=== PATIENT | female | born 1975 | race Caucasian/White ===

== ENCOUNTER 2020-10-26 07:48 | Emergency (ER) | payer MEDICARE, OTHER, SELFPAY ==
[2020-10-26 07:55] VITALS: BP 142/66; PULSE 88; RESP 15; TEMP 36.2; O2SAT 98; BMI 34.3
[2020-10-26] MEDS: AMOXICILLIN/CLAV 875/125 MG 1 TAB PO (08:07)
[2020-10-26] MEDS: predniSONE 20 MG TABLET 40 MG PO (08:07)
--- NOTE | 2020-10-26 08:07 | ED.ALLEREA ---
HPI - Allergic Reaction General Chief complaint: Allergic Reaction Stated complaint: SWELLING OF FACE Time Seen by Provider: 10/26/20 07:53 Source: patient Mode of arrival: Ambulatory Limitations: no limitations History of Present Illness HPI narrative: 45-year-old female daily smoker with no chronic medical problems presents with her significant other and a chief complaint of mildly painful left-sided facial swelling since yesterday. She denies any injury. She has had no trouble breathing or swallowing. She denies any fever or chills. She does have a history of dental abscesses but denies any fever, chills or foul tasting drainage. She denies any rash, wheezing or exposure to new medications, pets, clothing or other possible allergic triggers. MD complaint: facial swelling Onset (ago): hour(s) Exposure: unknown Symptoms: facial swelling Severity: mild Treatment prior to arrival: none Previous Allergic Reaction History: none Related Data Previous Rx's Medication Instructions Recorded amoxicillin-pot clavulanate 1 tab PO BID #20 tab 10/26/20 [Augmentin] prednisone See Rx Instructions .ROUTE 10/26/20 .COMPLEX #30 tab Allergies Allergy/AdvReac Type Severity Reaction Status Date / Time No Known Drug Allergies Allergy Verified 10/26/20 08:01 Review of Systems Constitutional Constitutional: Denies chills, Denies fatigue, Denies fever(s), Denies frequent falls, Denies lethargy and Denies weakness Eyes Eyes: Denies change in vision, Denies eye discharge, Denies irritation and Denies loss of vision ENT Ears, Nose, Mouth, and Throat: Denies change in voice, Denies dizziness, Reports facial pain, Denies neck pain, Denies sore throat and Denies throat swelling Cardiovascular Cardiovascular: Denies chest pain, Denies irregular heart rhythm, Denies lightheadedness, Denies palpitations, Denies dyspnea, Denies dyspnea on exertion and Denies orthopnea Respiratory Respiratory: Denies cough, Denies dyspnea, Denies dyspnea on exertion and Denies wheezing Gastrointestinal Gastrointestinal: Denies abdominal pain, Denies change in bowel habits, Denies diarrhea, Denies nausea and Denies vomiting Musculoskeletal Musculoskeletal: Denies neck pain and Denies numbness Integumentary/Breasts Skin/Breast: Denies pruritus, Denies erythema, Denies rash and Denies wounds Neurologic Neurologic: Denies behavioral changes, Denies confusion, Denies dizziness, Denies frequent falls, Denies loss of vision, Denies numbness and Denies weakness Psychiatric Psychiatric: Denies anxiety, Denies behavioral changes, Denies confusion, Denies depression, Denies homicidal ideation and Denies suicidal ideation Endocrine Endocrine: Denies fatigue, Denies flushing and Denies palpitations Hematologic/Lymphatic Hematologic/Lymphatic: Denies easy bruising Allergic/Immunologic Allergic/Immunologic: Denies urticaria, Denies throat swelling and Denies wheezing Patient History Social History Smoking Status: Current every day smoker Smoking Status: Current every day smoker tobacco type: cigarettes alcohol intake frequency: 0-2 drinks per day Substance Use Type: does not use Exam Narrative Exam Narrative: GENERAL 45 year old patient appears stated age. Well-nourished, well-developed patient, in mild distress. HEAD: Atraumatic. Normocephalic. Mild left maxillary swelling without erythema, fluctuation or induration EYES: Pupils equal round and reactive. Extraocular motions intact. No scleral icterus. No injection or drainage. ENT: Poor dentition throughout, left upper molars probable source, no obvious drainable intraoral abscess. Nose without bleeding, purulent drainage. Throat without erythema, tonsillar hypertrophy or exudate. Airway patent. NECK: Trachea midline. Non tender CARDIOVASCULAR: Regular rate and rhythm without murmurs, gallops, or rubs. RESPIRATORY: Clear to auscultation. Breath sounds equal bilaterally. No wheezes, rales, or rhonchi. GASTROINTESTINAL: Abdomen soft, non-tender, nondistended. EXTREMITIES: No edema or joint tenderness. BACK: Nontender without deformity or crepitance. No flank tenderness. NEURO: AOx3. SKIN: No rash or erythema of visible areas Initial Vital Signs Initial Vital Signs: Vital Signs Temperature 97.1 F L 10/26/20 07:55 Pulse Rate 88 10/26/20 07:55 Respiratory Rate 15 10/26/20 07:55 Blood Pressure 142/66 H 10/26/20 07:55 Pulse Oximetry 98 10/26/20 07:55 Course Orders Ordered: Discontinued Medications Amoxicillin/Clavulanate Potassium (Amoxicillin/Clav 875/125 Mg) 1 tab PO NOW ONE Stop: 10/26/20 08:05 Prednisone (Prednisone 20 Mg Tablet) 40 mg PO NOW ONE Stop: 10/26/20 08:05 Vital Signs Vital signs: Vital Signs - 8 hr 10/26/20 07:55 Temperature 97.1 F L Pulse Rate 88 Respiratory Rate 15 Blood Pressure 142/66 H Pulse Oximetry 98 MDM - Allergic Reaction MDM Narrative Medical decision making narrative: Multiple etiologies for patient's symptoms considered including: [Dental abscess thought most likely given unilateral presentation, lack of other symptoms, mild pain and poor dentition. Other symptoms include atypical keratitis versus sialoadenitis versus focal allergic reaction.] Patient's symptoms improved over duration of stay with above-stated therapies. Findings and discharge diagnosis discussed with patient/family followed by verbalization of understanding Return precautions discussed with patient/family whom verbalize understanding. Discharge Plan Departure Patient Disposition: Home Clinical Impression: Abscess, dental Instructions: Tooth Abscess Activity Restrictions/Additional Instructions: *You have been diagnosed with [mild facial swelling, likely due to early dental abscess] *What to do: *Take medications as directed *Follow up with your primary care provider in 2-3 days, call for an appointment. Let them know you were seen in the Emergency Department and that we ask that you be seen in follow up *Return to ER if you should have any new, worsening or concerning symptoms, such as [increased swelling, difficulty breathing, trouble swallowing or other bothersome symptoms] Prescriptions: New prednisone 10 mg tablet See Rx Instructions .ROUTE .COMPLEX Qty: 30 RF: 0 amoxicillin-pot clavulanate [Augmentin] 875-125 mg tablet 1 tab PO BID Qty: 20 RF: 0
== END 2020-10-26 08:12 | disposition home or self-care (01) ==
PROVIDERS: Emergency Provider Emergency Medicine
DX: K04.7 Periapical abscess without sinus (principal)
CPT/HCPCS: 99281; 99283

== ENCOUNTER 2024-02-07 21:47 | Emergency (ER) | payer MEDICARE, MEDICAID, SELFPAY ==
[2024-02-07] VITALS (8 sets, daily range): BP systolic 127–178; BP diastolic 71–101; PULSE 67–97; RESP 17–22; TEMP 36.4; O2SAT 100; BMI 29.9
--- NOTE | 2024-02-07 22:07 | ED.BACK ---
HPI - Back Pain/Injury General Chief Complaint: Back Pain/Injury Stated Complaint: kidney pain Time Seen by Provider: 02/07/24 21:53 Source: patient History of Present Illness HPI Narrative: 48-year-old female with a reported history of rheumatoid arthritis presents for left-sided lumbar back pain. Patient states that she was concerned that she has a problem with her kidneys in his here for evaluation. Took ibuprofen prior to arrival with minimal relief of pain. Denies changes in bowel or bladder habits. Denies nausea or vomiting. Of note, when I initially arrived to evaluate the patient she was resting on her left-hand side texting on her phone. Shortly after evaluating the patient she began to scream and cry, yelling profanities at nursing staff and demanding pain medications. Related Data Previous Rx's Medication Instructions Recorded amoxicillin 875 mg-potassium 1 tab PO BID #20 tabs 10/26/20 clavulanate 125 mg tablet (Augmentin) prednisone 10 mg tablet See Rx Instructions .Route 10/26/20 .COMPLEX #30 tabs methocarbamol 500 mg tablet 500 mg PO TID #30 tabs 02/07/24 methylprednisolone 4 mg tablets in See Rx Instructions PO .COMPLEX 02/07/24 a dose pack (Medrol (Yang)) #21 ea Allergies Allergy/AdvReac Type Severity Reaction Status Date / Time No Known Drug Allergies Allergy Verified 10/26/20 08:01 Review of Systems Review of Systems Narrative: See HPI Patient History Social History Smoking Status: Current every day smoker Smoking Status: Current every day smoker tobacco type: cigarettes alcohol intake frequency: 0-2 drinks per day Substance Use Type: marijuana and methamphetamine Exam Initial Vital Signs Initial Vital Signs: Vital Signs Pulse Rate 94 H 02/07/24 21:55 Blood Pressure 178/101 H 02/07/24 21:55 Pulse Oximetry 100 02/07/24 21:55 Oxygen Delivery Method Room Air 02/07/24 21:55 Const: Awake, alert, appears older than stated age, chronically unwell Cardiac: regular rate, regular rhythm RESP: unlabored, clear bilaterally, no wheezing MSK: No midline tenderness, generalized left-sided paraspinal and CVA tenderness to palpation Skin: Warm, Dry, intact, no rashes Neuro: AO x3, CN II-XII grossly intact, moves all extremities Course Orders Ordered: ED Orders 02/07/24 22:00 UA Complete [Urinalysis and Microscopic] Stat Urine Drug Screen, Rapid Stat 02/07/24 22:06 CT abdomen pelvis wo con Stat 02/07/24 22:17 CBC Auto Diff [Complete Blood Count AUTO DIFF] Stat CMP [Comprehensive Metabolic Panel] Stat Discontinued Medications Droperidol (Droperidol 5 Mg/2 Ml Vial) 2.5 mg IV NOW ONE Stop: 02/07/24 23:12 Last Admin: 02/07/24 23:18 Dose: 2.5 mg Documented By: TINY Acetaminophen (Ofirmev) 1,000 mg in 100 mls @ 400 mls/hr IV NOW ONE Stop: 02/07/24 22:20 Last Infusion: 02/07/24 23:17 Dose: Infused Documented By: Infusion: 02/07/24 22:45 Dose: 400 mls/hr Documented By: Infusion: 02/07/24 22:29 Dose: 0 mls/hr Documented By: Admin: 02/07/24 22:29 Dose: 400 mls/hr Documented By: ROSSY Sodium Chloride (Normal Saline 0.9%) 1,000 mls @ 1,000 mls/hr IV BOLUS ONE Stop: 02/07/24 23:05 Last Infusion: 02/07/24 23:50 Dose: Infused Documented By: Infusion: 02/07/24 22:45 Dose: 1,000 mls/hr Documented By: Infusion: 02/07/24 22:29 Dose: 0 mls/hr Documented By: Admin: 02/07/24 22:28 Dose: 1,000 mls/hr Documented By: ROSSY Ketorolac Tromethamine (Ketorolac 30 Mg/Ml Vial) 15 mg IV NOW ONE Stop: 02/07/24 22:07 Last Admin: 02/07/24 22:21 Dose: 15 mg Documented By: ROSSY Vital Signs Vital signs: Vital Signs - 8 hr 02/07/24 21:55 02/07/24 21:55 02/07/24 21:58 Temperature 97.5 F L Pulse Rate 94 H 97 H Respiratory Rate 22 Blood Pressure 178/101 H 178/101 H Pulse Oximetry 100 100 Oxygen Delivery Method Room Air Room Air 02/07/24 22:00 02/07/24 22:01 02/07/24 22:01 Temperature Pulse Rate 84 80 Respiratory Rate Blood Pressure 142/88 H Pulse Oximetry 100 100 Oxygen Delivery Method Room Air 02/07/24 22:38 02/07/24 23:00 02/07/24 23:30 Temperature Pulse Rate 81 79 67 Respiratory Rate Blood Pressure Pulse Oximetry 100 100 100 Oxygen Delivery Method Room Air 02/07/24 23:55 02/07/24 23:55 02/08/24 00:00 Temperature Pulse Rate 67 66 Respiratory Rate 17 18 Blood Pressure 127/71 127/71 Pulse Oximetry 100 100 Oxygen Delivery Method Room Air Room Air MDM - Back Pain/Injury Differential Diagnosis Differential diagnosis: Likely lumbar radiculopathy, sciatica and strain of lumbar region Lab Data 02/07/24 22:17 02/07/24 22:17 Labs: Lab Results 02/07/24 02/07/24 02/07/24 Range/Units 22:00 22:00 22:17 WBC 4.8 (4.5-11.0) X10^3/uL RBC 4.34 (4.0-5.2) X10^6/uL Hgb 7.9 L (12.0-16.0) g/dL Hct 25.9 L (36-46) % MCV 59.7 L (80-100) fL MCH 18.1 L (26-34) PG MCHC 30.4 (30-36) % RDW 19.1 H (11.6-14.8) % Plt Count 356 (150-400) X10^3/uL Neut % (Auto) 35.9 L (50-75) % Lymph % (Auto) 51.2 H (25-40) % [place] % (Auto) 8.5 (3-14) % Eos % (Auto) 3.9 (2-4) % Baso % (Auto) 0.5 (0-2) % Neut # (Auto) 1700 (2970-5997) /uL Lymph # (Auto) 2400 (2237-5587) /uL [place] # (Auto) 400 (0-900) /uL Eos # (Auto) 200 (0-450) /uL Baso # (Auto) 0 (0-100) /uL RBC Morphology See below Hypochromasia 2+ H Anisocytosis 1+ H Microcytosis 3+ H Ovalocytes 1+ H Sodium 137 (137-145) mmol/L Potassium 4.1 (3.4-5.1) mmol/L Chloride 107 (98-107) mmol/L Carbon Dioxide 27 (22-32) mmol/L BUN 14 (7-17) mg/dL Creatinine 0.72 (0.52-1.04) mg/dL Estimated GFR > 60 (>60) mL/min BUN/Creatinine Ratio 19.4 (6-22) Glucose 91 (70-100) mg/dL Calcium 9.0 (8.4-10.2) mg/dL Total Bilirubin 0.3 (0.2-1.3) mg/dL AST 13 L (14-36) IU/L ALT 9 (<35) IU/L Alkaline Phosphatase 66 (38-126) U/L Total Protein 7.2 (6.3-8.2) g/dL Albumin 3.9 (3.5-5.0) g/dL Globulin 3.3 (1.7-4.1) g/dL Albumin/Globulin Ratio 1.2 (1.0-2.8) Urine Color Yellow Urine Appearance Clear Urine pH 6.0 Normal (4.5-8.0) Ur Specific [place] <=1.005 (1.000-1.035) Urine Protein Negative (Negative) Urine Glucose (UA) Negative (Negative) g/dL Urine Ketones Negative (NEGATIVE) Urine Occult Blood Negative (Negative) Urine Nitrate Negative (Negative) Urine Bilirubin Negative (NEGATIVE) Urine Urobilinogen 0.2 (0.2) E.U./dL Ur Leukocyte Esterase Negative (NEGATIVE) Urine RBC None seen (0-5/HPF) Urine WBC None seen (0-5/HPF) Ur Squamous Epith Cells 1-5 /hpf (0-5/HPF) Urine Bacteria Few (2-10) H (None) Ur Culture Indicated? Cult not indicated Vol Urine Centrifuged 10ml (spun) U Opiates 300ng/mL cut Negative (Negative) Ur Oxycodone Screen Negative (Negative) Urine Methadone Screen Negative (Negative) Ur Barbiturates Screen Negative (Negative) U Tricyclic Antidepress Negative (Negative) Ur Phencyclidine Scrn Negative (Negative) Ur Amphetamines Screen Positive H (Negative) U Methamphetamines Scrn Positive H (Negative) Ur MDMA Scrn (Ecstasy) Negative (Negative) U Benzodiazepines Scrn Negative (Negative) Urine Cocaine Screen Negative (Negative) U Marijuana (THC) Screen Negative (Negative) Urine Specific [place] Normal (Normal) Ur Creatinine Normal (Normal) Urine Dip Bedside Urine Glucose Negative Bedside Urine Bilirubin - Negative Bedside Urine Ketone - Negative Urine Specific [place] 1.015 Bedside Urine Occult Blood - Negative Bedside Urine pH 6.0 Bedside Urine Protein - Negative Bedside Urine Urobilinogen - Negative Bedside Urine Nitrite - Negative Bedside Urine Leukocytes - Negative Esterase Imaging Data CT scan - abdomen/pelvis: Radiologist's Impression: PROCEDURE: CT ABDOMEN PELVIS WO CON INDICATIONS: L FLANK PAIN TECHNIQUE: Axial sections were acquired from the lung bases to the pubic symphysis. Coronal and sagittal reformats were performed. For radiation dose reduction, the following was used: automated exposure control, adjustment of mA and/or kV according to patient size. COMPARISON: None. FINDINGS: Image quality: Diagnostic. Lower Chest: No significant findings. URINARY: Right Kidney: No stones or hydronephrosis. Right Ureter: No hydroureter. Left Kidney: 1.5 mm left mid kidney nonobstructive calculus, no other stones or hydronephrosis. Left Ureter: No hydroureter. Bladder: Normal wall thickness. No stones. ABDOMEN: Liver: No contour-deforming solid mass. Within the right hepatic lobe there are 2 separate vague hypodensities which may simply reflect presence of him angiomas. One is located within the subcapsular right hepatic lobe laterally on series 2, image 19 measuring 2 cm and the 2nd is slightly lower within the right posterior hepatic segment measuring 1.4 cm seen on series 2, image 24. Gallbladder: Single 2 mm gallstone, no biliary distension. Biliary ducts: No biliary dilation. Pancreas: No ductal dilation. Spleen: Size is within normal limits. Adrenal Glands: No adrenal nodules. Stomach and Bowel: Normal colonic caliber, without significant wall thickening. Peritoneum: No abnormal intraperitoneal fluid. No free air. Ventral Wall: No hernia. Abdominal Nodes: No enlarged retroperitoneal or mesenteric lymph nodes. Vessels: Aorta and inferior vena cava are normal in size. PELVIS: Pelvic Organs: Unremarkable. Pelvic Nodes: Unremarkable. Miscellaneous: No inguinal hernias are seen. Normal appendix found. Bones: Unremarkable. IMPRESSION: No obstructing stones or hydronephrosis. Small nonobstructive left mid kidney collecting system calculus incidentally noted. Small calcified single gallstone within the gallbladder lumen, the gallbladder does not appear inflamed. Nonspecific small hypodensities within the right hepatic lobe as discussed. Elective follow-up ultrasound could be utilized to assist in determining whether these simply represent hemangiomas. Dictated by: Marshall Alfaro M.D. on 02/07/2024 at 23:05 Approved by: Marshall Alfaro M.D. on 02/07/2024 at 23:11 MDM Narrative Medical decision making narrative: Left-sided flank/lumbar pain. Patient concerned that she may have a kidney stone, but she denies history of kidney stones in the past. Tender to palpation all over the left side of her back. On my initial evaluation patient resting comfortably in bed on her phone, however shortly afterwards patient began sobbing,, screaming for pain medications and cursing at nursing staff. Tylenol, Toradol, Decadron, droperidol, IV fluids ordered. Pain controlled with medications. Laboratory work is reviewed. Patient has anemia with hemoglobin 7.9, no previous for comparison. This could be chronic due to history of rheumatoid arthritis. WBC count 4.8, platelets 356, sodium 137, potassium 4.1, creatinine 0.72, normal liver enzymes. CT of the abdomen and pelvis shows no renal stone or other acute process. Incidental note of small hypodensities in the right hepatic lobe, however no priors for comparison. Patient informed of lab and imaging findings. Recommended follow up with her primary care physician and [employer] if she continues to experience symptoms. Muscle relaxers and steroids sent to pharmacy of choice. Discharge Plan Departure Patient Disposition: Home Clinical Impression: Lumbar back pain, Abnormal CT scan, liver Instructions: DI for Low Back Pain Activity Restrictions/Additional Instructions: Your laboratory work and CT imaging today did not show any evidence of kidney stones or infection. Based on where your pain is located this is likely low back strain. An incidental note of 2 small hypodensities in your liver. I recommend following up with your primary care doctor about these findings as you may need additional imaging such as an ultrasound. Take Tylenol and ibuprofen at home for pain. You may also use the prescribed steroids and muscle relaxers Prescriptions: New methocarbamol 500 mg tablet 500 mg PO TID Qty: 30 0RF methylprednisolone [Medrol (Yang)] 4 mg tablets,dose pack See Rx Instructions .ROUTE .COMPLEX Qty: 21 0RF Rx Instructions: for 6 days No Action prednisone 10 mg tablet See Rx Instructions .ROUTE .COMPLEX Qty: 30 0RF Rx Instructions: Day 1,2,3: 40mg PO Daily Day 4,5,6: 30mg PO Daily Day 7,8,9: 20mg PO Daily Day 10,11,12: 10mg PO Daily #30 amoxicillin-pot clavulanate [Augmentin] 875-125 mg tablet 1 tab PO BID Qty: 20 0RF Stand Alone Forms: Patient Portal/API
[2024-02-07] MEDS: KETOROLAC 30 MG/ML VIAL 15 MG IV (22:21)
[2024-02-07] MEDS: SODIUM CHLORIDE 0.9% 1,000 ML 1000 ML IV (22:28)
[2024-02-07 22:29] LABS: Add Manual Diff / Slide Review NO; Basophils Absolute Auto 0 /uL (0-100); Basophils Percent Auto 0.5 % (0-2); Eosinophils Absolute Auto 200 /uL (0-450); Eosinophils Percent Auto 3.9 % (2-4); Hematocrit 25.9 % (36-46); Hemoglobin 7.9 g/dL (12.0-16.0); Lymphocytes Absolute Auto 2400 /uL (1100-4500); Lymphocytes Percent Auto 51.2 % (25-40); Mean Corpuscular HGB Conc 30.4 % (30-36); Mean Corpuscular Hemoglobin 18.1 PG (26-34); Mean Corpuscular Volume 59.7 fL (80-100); Monocytes Absolute Auto 400 /uL (0-900); Monocytes Percent Auto 8.5 % (3-14); Neutrophils Absolute Auto 1700 /uL (1500-7000); Neutrophils Percent Auto 35.9 % (50-75); Platelet Count 356 X10^3/uL (150-400); Red Blood Cell Count 4.34 X10^6/uL (4.0-5.2); Red Cell Distribution Width 19.1 % (11.6-14.8); White Blood Cell Count 4.8 X10^3/uL (4.5-11.0)
[2024-02-07] MEDS: ACETAMINOPHEN IV 1,000 MG/100 ML VIAL 400 MG IV (22:29)
[2024-02-07 22:38] LABS: Alanine Aminotransferase 9 IU/L (<35); Albumin 3.9 g/dL (3.5-5.0); Albumin Globulin Ratio 1.2 (1.0-2.8); Alkaline Phosphatase 66 U/L (38-126); Aspartate Aminotransferase 13 IU/L (14-36); BUN Creatinine Ratio 19.4 (6-22); Bilirubin Total 0.3 mg/dL (0.2-1.3); Blood Urea Nitrogen 14 mg/dL (7-17); Carbon Dioxide 27 mmol/L (22-32); Chloride 107 mmol/L (98-107); Estimated Glomerular Filt Rate > 60 mL/min (>60); Globulin 3.3 g/dL (1.7-4.1); Glucose 91 mg/dL (70-100); HEMOLYSIS < 15 (0-50); Potassium 4.1 mmol/L (3.4-5.1); Sodium 137 mmol/L (137-145); Total Protein 7.2 g/dL (6.3-8.2)
[2024-02-07 22:55] LABS: Anisocytosis 1+; Hypochromasia 2+; Microcytosis 3+; Ovalocytes 1+
[2024-02-07 23:00] LABS: Appearance Urine UA CLEAR; Bilirubin Urine UA NEGATIVE (NEGATIVE); Color Urine UA YELLOW; Glucose Urine UA NEGATIVE (Negative); Ketones Urine UA NEGATIVE (NEGATIVE); Leukocyte Esterase Urine UA NEGATIVE (NEGATIVE); Nitrite Urine UA NEGATIVE (Negative); Occult Blood Urine UA NEGATIVE (Negative); Protein Urine UA NEGATIVE (Negative); Specific Gravity Urine UA <=1.005 (1.000-1.035); Urobilinogen Urine UA 0.2 E.U./dL (0.2)
[2024-02-07 23:05] LABS: Ur Creatinine Normal (Normal); Ur Specific Gravity Normal (Normal); Urine THC Negative (Negative); Urine pH Normal (Normal)
[2024-02-07 23:06] LABS: Urine Amphetamines Positive (Negative); Urine Barbiturates Negative (Negative); Urine Benzodiazepines Negative (Negative); Urine Cocaine Negative (Negative); Urine MDMA Negative (Negative); Urine Methadone Negative (Negative); Urine Methamphetamines Positive (Negative); Urine Opiates Negative (Negative); Urine Oxycodone Negative (Negative); Urine Phencyclidine Negative (Negative); Urine Tricyclic Antidepressant Negative (Negative)
[2024-02-07 23:11] LABS: Bacteria Urine Few (2-10); Culture Indicated Urine Cult Not Indicated; RBC Urine None Seen (0-5/HPF); Squamous Epithelial Cell Urine 1-5 /HPF (0-5/HPF); Urine Volume 10mL (spun); WBC Urine None Seen (0-5/HPF)
[2024-02-07] MEDS: DROPERIDOL 5 MG/2 ML VIAL 2.5 MG IV (23:18)
[2024-02-08] VITALS: BP 127/71; PULSE 66; RESP 18; O2SAT 100
== END 2024-02-08 00:02 | disposition home or self-care (01) ==
PROVIDERS: Emergency Provider Emergency Medicine
DX: M54.50 Low back pain, unspecified (principal); R93.2 Abnormal findings on diagnostic imaging of liver and biliary tract
CPT/HCPCS: 36415; 74176; 80053; 80305; 81001; 81003; 85025; 96365; 96375; 99284; J0136; J1790; J1885

== ENCOUNTER 2024-06-10 11:27 | Emergency (ER) | payer MEDICARE, MEDICAID, SELFPAY ==
--- NOTE | 2024-06-10 11:41 | ED_ITS ---
HPI - Extremity Injury (Lower) <Milady Quiles PA-C - Last Filed: 06/10/24 12:43> General Chief Complaint: Extremity Problem,Nontraumatic Stated Complaint: L Knee Pain Time Seen by Provider: 06/10/24 11:40 History of Present Illness HPI Narrative: Patient is a very pleasant 49-year-old female presents to the emergency room department today with left knee pain. Patient has ongoing chronic pain, she has had extensive surgical intervention due to multiple orthopedic injuries. She has ongoing neuropathy in the legs. Currently is in between primary care doctors. Currently has a extruder operator helper that she is in close touch with who works with her rheumatologic issues at [facility]. Currently to your medications as prescribed. She now presents with an exacerbation of kind of left lower extremity pins and needles, neuropathy pain, the pain has increased over the last several days. No recent injury, trauma or fall. She can not correlate when the pain intensified with any type of activity that she was doing. We looked for MyChart no recent x-rays. She denies any exacerbation of her neuropathy symptoms she is increasing pain. Took ibuprofen around 7:00 a.m. this morning no other medications. No recent prednisone. Currently not doing any actively physical therapy. She has been disabled since her 30s due to a major back injury and multiple surgical interventions in her lower spine. Currently does not have any back pain. She has no loss of bowel or bladder. She has no signs of cauda equina. Movement of the lower extremity exacerbates the pain. She states the pain is mostly on the anterior aspect of the leg and down the medial and lateral sides and across into the patellar area. Rest seems to improve the pain. The [id number] nonsteroidals do not seem to be helping discomfort and pain. Related Data Previous Rx's Medication Instructions Recorded amoxicillin 875 mg-potassium 1 tab PO BID #20 tabs 10/26/20 clavulanate 125 mg tablet (Augmentin) prednisone 10 mg tablet See Rx Instructions .Route 10/26/20 .COMPLEX #30 tabs methocarbamol 500 mg tablet 500 mg PO TID #30 tabs 02/07/24 methylprednisolone 4 mg tablets in See Rx Instructions PO .COMPLEX 02/07/24 a dose pack (Medrol (Yang)) #21 ea hydrocodone 5 mg-acetaminophen 325 1 tab PO BID PRN pain #12 tabs 06/10/24 mg tablet Allergies Allergy/AdvReac Type Severity Reaction Status Date / Time No Known Drug Allergies Allergy Verified 10/26/20 08:01 Review of Systems <Milady Quiles PA-C - Last Filed: 06/10/24 12:43> Review of Systems Narrative: Negative except as above Musculoskeletal Comments: pain left knee ongoing issues with the left knee, known exacerbation her pain. Patient History <Milady Quiles PA-C - Last Filed: 06/10/24 12:43> Social History Smoking Status: Current every day smoker Smoking Status: Current every day smoker tobacco type: cigarettes alcohol intake frequency: 0-2 drinks per day Substance Use Type: marijuana and methamphetamine Exam <Milady Quiles PA-C - Last Filed: 06/10/24 12:43> Initial Vital Signs Initial Vital Signs: Vital Signs Temperature 98.2 F 06/10/24 11:50 Pulse Rate 93 H 06/10/24 11:50 Respiratory Rate 20 06/10/24 11:50 Blood Pressure 131/87 06/10/24 11:50 Pulse Oximetry 100 06/10/24 11:50 Oxygen Delivery Method Room Air 06/10/24 11:50 Initial set of vital signs blood pressure 131/87, heart rate 93, respiratory rate 20, temp is 98.2?, oxygen saturation 100% on room air. Const General: cooperative, comfortable, well developed, No acute distress, No in distress and No anxious [facility] Head: normal to inspection and normocephalic Eyes General: Yes appearance normal, both eyes and all related structures Pupils: other (Left pupil equal and reactive, she has some haziness over the right cornea.) EOM: EOM intact bilaterally Skin Other: Warm pink and dry Neuro General: patient alert, patient awake, patient oriented x3 and oriented Cranial Nerves: CN's II-XI intact bilaterally Cognition: normal cognition Speech: speech normal Gait: antalgic and other (Favoring the left knee) Extrem Other: Upper extremities range of motion, strength, pulses, cap refill is preserved in the upper extremities. Right lower extremity normal exam. Left lower extremity no soft tissue swelling. Skin is normal. Cap refill is preserved. Pulses are present. Patient has medial and lateral ITB band discomfort and pain with palpation. Pain along the patella. No popliteal pain. Range of motion passive and active causes her some minimal distress. Strength is intact. No laxity is noted on exam. No obvious deformity. No soft tissue swelling. No erythema. No deformities noted. Psych Appearance: grossly normal Mental Status: mental status grossly normal Speech and Movement: speech and movement normal Mood: congruent mood Affect: normal affect Attitude: cooperative Thought Process: normal Thought Content: normal Judgment: judgment good <DO Sveta Garduno Last Filed: 06/17/24 16:31> Initial Vital Signs Initial Vital Signs: Vital Signs Temperature 98.2 F 06/10/24 11:50 Pulse Rate 93 H 06/10/24 11:50 Respiratory Rate 20 06/10/24 11:50 Blood Pressure 131/87 06/10/24 11:50 Pulse Oximetry 100 06/10/24 11:50 Oxygen Delivery Method Room Air 06/10/24 11:50 Scores <Milady Quiles PA-C - Last Filed: 06/10/24 12:43> GCS Citation: 15 Course <Milady Quiles PA-C - Last Filed: 06/10/24 12:43> Orders Ordered: Discontinued Medications Hydrocodone Bitart/Acetaminophen (Hydrocodone/Acet 5/325 Tablet) 1 tab PO NOW ONE Stop: 06/10/24 11:54 Last Admin: 06/10/24 12:06 Dose: 1 tab Documented By: PLACIDO Hydrockemar 01/13/2025 X-ray of the left knee <DO Sveta Garduno Last Filed: 06/17/24 16:31> Orders Ordered: Discontinued Medications Hydrocodone Bitart/Acetaminophen (Hydrocodone/Acet 5/325 Tablet) 1 tab PO NOW ONE Stop: 06/10/24 11:54 Last Admin: 06/10/24 12:06 Dose: 1 tab Documented By: PLACIDO MDM - Extremity Injury (Lower) <Milady Quiles PA-C - Last Filed: 06/10/24 12:43> Imaging Data Extremity x-ray #1: Radiologist's Impression: [address] [address] XRay Report Signed Patient: Krystal Welch MR#: [id number] : 1975 Acct:[id number] Age/Sex: 49 / F Date of Service: 06/10/24 Loc: ED Accession Number: [id number] Procedure: XR knee LT 3V Ordering Provider: Milady Quiles PA-C PROCEDURE: XR KNEE LT 3V INDICATIONS: knee pain TECHNIQUE: 3 views of the knee were acquired. COMPARISON: None. FINDINGS: Bones: No fractures or dislocations. No suspicious bony lesions. Soft tissues: There is a small to moderate joint effusion. No suspicious soft tissue calcifications. IMPRESSION: Small to moderate joint effusion. No significant bony abnormality is seen. If it would be helpful for clinical management decision making, please consider a dedicated, scheduled knee MRI for further evaluation (assuming that there is no contraindication). Dictated by: Porfirio Bolden M.D. on 06/10/2024 at 11:25 Approved by: Porfirio Bolden M.D. on 06/10/2024 at 11:25 MDM Narrative Medical decision making narrative: Patient is a very pleasant 49-year-old female that presents to the emergency department with an exacerbation ongoing chronic pain. Patient has a longstanding history of multiple back surgeries, lower extremity neuropathy, lower extremity pain. 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 Patient has been dealing with the pain for several days exacerbation of the pain. Difficulty sleeping, currently in between primary doctors. [id number] nonsteroidals not controlling her discomfort and pain. No red flag symptoms. Exam is negative for any acute signs of ligament damage. Hydrocodone 1 tablet p.o. Knee x-ray no major finding suggest knee MRi Pt needs pcp tyler wrap given to the patient upon DC Discussed with the patient that though she was rheumatologists in [facility] she really needs to establish care with a primary care doctor she is 49, she needs an FOBT, she needs a mammogram, he would Pap smear, she needs just basic lab work not just rheumatologic tests. She needs to be evaluated for diabetes thyroid problem those type of things which a extruder operator helper would not be engaged with. Patient understands if states very difficult to find somebody and [place] which I completely understand. I have encouraged her to look maybe perhaps here in the surrounding area around [facility]. Currently at this time she has been wheeled to the x-ray department for an x-ray of the knee since we were [facility] Differential diagnosis; exacerbation chronic pain, knee strain, knee sprain, internal derangement. Discharge Plan Departure Patient Disposition: Home Clinical Impression: Left knee sprain Qualifiers: Encounter type: initial encounter Involved ligament of knee: unspecified ligament Qualified Code(s): S83.92XA - Sprain of unspecified site of left knee, initial encounter Chronic pain Qualifiers: Chronic pain type: other chronic pain Qualified Code(s): G89.29 - Other chronic pain Activity Restrictions/Additional Instructions: X-ray does not show any major acute findings. You have a joint effusion which is fluid this is associated with inflammation. Sounds like you have prednisone home but does not sound like it is helping his your currently taking it for a flare of her rheumatoid arthritis. Please follow up with her primary care doctor.. We have sent you home with an Tyler wrap please apply the Tyler wrap the knee for support and comfort. Elevate the leg. Ice and heat on and off the leg. Please establish care with a primary care doctor. The radiologist is suggesting an MRI of the left knee. You will need a referral/prescription for an MRI, and then you will need somebody to follow up on the results. You can ask your extruder operator helper to order this or you can attempt to find a primary care doctor I would suggest that you look in the surrounding area around [facility] her primary care doctor. Prescription has been sent to the pharmacy for you. Please note drinking, driving, operating any recreational vehicles or using any recreational drugs. Prescriptions: New hydrocodone-acetaminophen 5-325 mg tablet 1 tab PO BID PRN (Reason: pain) Qty: 12 0RF No Action prednisone 10 mg tablet See Rx Instructions .ROUTE .COMPLEX Qty: 30 0RF Rx Instructions: Day 1,2,3: 40mg PO Daily Day 4,5,6: 30mg PO Daily Day 7,8,9: 20mg PO Daily Day 10,11,12: 10mg PO Daily #30 amoxicillin-pot clavulanate [Augmentin] 875-125 mg tablet 1 tab PO BID Qty: 20 0RF methocarbamol 500 mg tablet 500 mg PO TID Qty: 30 0RF methylprednisolone [Medrol (Yang)] 4 mg tablets,dose pack See Rx Instructions .ROUTE .COMPLEX Qty: 21 0RF Rx Instructions: for 6 days Stand Alone Forms: Patient Portal/API ED Sign-out <Anastasia Alicea, DO - Last Filed: 06/17/24 16:31> Cosign ED Attending Cosignature Attestation: I was available for consultation.
[2024-06-10 11:50] VITALS: BP 131/87; PULSE 93; RESP 20; TEMP 36.8; O2SAT 100
--- NOTE | 2024-06-10 11:52 | DI.RAD.S_ITS ---
PROCEDURE: XR KNEE LT 3V INDICATIONS: knee pain TECHNIQUE: 3 views of the knee were acquired. COMPARISON: None. FINDINGS: Bones: No fractures or dislocations. No suspicious bony lesions. Soft tissues: There is a small to moderate joint effusion. No suspicious soft tissue calcifications. IMPRESSION: Small to moderate joint effusion. No significant bony abnormality is seen. If it would be helpful for clinical management decision making, please consider a dedicated, scheduled knee MRI for further evaluation (assuming that there is no contraindication). Dictated by: Porfirio Bolden M.D. on 06/10/2024 at 11:25 Approved by: Porfirio Bolden M.D. on 06/10/2024 at 11:25
[2024-06-10] MEDS: HYDROCODONE/ACET 5/325 TABLET 1 TAB PO (12:06)
== END 2024-06-10 12:49 | disposition home or self-care (01) ==
PROVIDERS: Emergency Provider Physician Assistant
DX: S83.92XA Sprain of unspecified site of left knee, initial encounter (principal); G89.29 Other chronic pain
CPT/HCPCS: 73562; 99283

== ENCOUNTER 2025-02-06 20:01 | Emergency (ER) | payer MEDICARE, MEDICAID, SELFPAY ==
[2025-02-06 20:08] VITALS: BP 151/83; PULSE 93; RESP 16; TEMP 36.7; O2SAT 98; BMI 32.5
--- NOTE | 2025-02-06 20:11 | DI.RAD.S_ITS ---
PROCEDURE: XR HAND LT MIN 3V INDICATIONS: injury/pain/swelling TECHNIQUE: 3 views of the hand(s) acquired. COMPARISON: None. FINDINGS: Bones: Possible fracture at the base of the 1st metacarpal, seen only on one view. Soft tissues: No suspicious soft tissue calcifications. IMPRESSION: Possible fracture at the base of the 1st metacarpal, seen only on one view. Correlate with point tenderness. Dictated by: Elian Haas M.D. on 02/06/2025 at 21:06 Approved by: Elian Haas M.D. on 02/06/2025 at 21:08
--- NOTE | 2025-02-06 21:21 | ED.UPPEXIN ---
HPI - Extremity Injury (Upper) General Chief Complaint: Extremity Injury, Upper Stated Complaint: fell Lt hand swelling pain-burning Time Seen by Provider: 02/06/25 21:21 Source: patient Mode of arrival: Ambulatory History of Present Illness HPI narrative: 49-year-old female no significant past medical history presenting for evaluation of pain in left hand, states that 2 days ago 8 be clamped fell on her hand, since then she has been having pain swelling and decreased mobility since a to this, she is neurovascularly intact, not on any blood thinners denies any other injuries or traumas. Related Data Previous Rx's Medication Instructions Recorded amoxicillin 875 mg-potassium 1 tab PO BID #20 tabs 10/26/20 clavulanate 125 mg tablet (Augmentin) prednisone 10 mg tablet See Rx Instructions .Route 10/26/20 .COMPLEX #30 tabs methocarbamol 500 mg tablet 500 mg PO TID #30 tabs 02/07/24 methylprednisolone 4 mg tablets in See Rx Instructions PO .COMPLEX 02/07/24 a dose pack (Medrol (Yang)) #21 ea hydrocodone 5 mg-acetaminophen 325 1 tab PO BID PRN pain #12 tabs 06/10/24 mg tablet naproxen 500 mg tablet (Naprosyn) 500 mg PO BID PRN pain 1 week #14 02/06/25 tabs Allergies Allergy/AdvReac Type Severity Reaction Status Date / Time No Known Drug Allergies Allergy Verified 10/26/20 08:01 Review of Systems Review of Systems Narrative: General: Denies fever, chills, weight loss HEENT: Denies headache, eye drainage, eye irritation, head trauma, sore throat, voice change Cardiovascular: Denies any chest pain, palpitations, tachycardia Respiratory: Denies any shortness of breath, cough, wheeze, stridor GI/: Denies any abdominal pain, nausea, vomiting, diarrhea, bright red blood per rectum, melanotic stools, urinary frequency, urinary retention, dysuria, hematuria MSK: Positive left hand pain Denies any joint pain, muscle pains, swelling Skin: Denies any rashes, lesions, discoloration Neuro: Denies any headache, lightheadedness, dizziness, fainting, weakness Psych: Denies SI/HI Patient History Smoking Status: Current every day smoker tobacco type: cigarettes alcohol intake frequency: 0-2 drinks per day Exam Narrative Exam Narrative: General: Cooperative, well-developed, not in acute distress HEENT: Normocephalic, atraumatic, PERRLA, normal sclera, eyelids normal Neck: Active full range of motion, atraumatic Chest: Normal to inspection, negative crepitus, no overlying erythema ecchymosis Respiratory: Normal respiratory effort, not in acute respiratory distress, clear to auscultation bilaterally negative cough, wheeze, tachypnea, rhonchi, rales Cardiology: Regular rate rhythm negative gallop, murmur, rubs GI/: No tenderness to palpation, soft, non rigid, normal to inspection, exam deferred MSK: Patient with mild pain to palpation of the entire posterior aspect of the left hand but neurovascularly intact, no gross deformity noted Skin: No rashes or lesions noted Neuro: Alert awake oriented x3, moves all 4 extremities spontaneously, cranial nerves intact, able to answer all questions appropriately follows commands appropriately Psych: Cooperative, negative suicidal or homicidal ideations Initial Vital Signs Initial Vital Signs: Vital Signs Temperature 98.1 F 02/06/25 20:08 Pulse Rate 93 H 02/06/25 20:08 Respiratory Rate 16 02/06/25 20:08 Blood Pressure 151/83 H 02/06/25 20:08 Pulse Oximetry 98 02/06/25 20:08 Oxygen Delivery Method Room Air 02/06/25 20:08 Course Orders Ordered: ED Orders 02/06/25 20:11 XR hand LT min 3V Stat Vital Signs Vital signs: Vital Signs - 8 hr 02/06/25 20:08 Temperature 98.1 F Pulse Rate 93 H Respiratory Rate 16 Blood Pressure 151/83 H Pulse Oximetry 98 Oxygen Delivery Method Room Air MDM - Extremity Injury (Upper) Differential Diagnosis Differential diagnosis: Likely other (Contusion, sprain, fracture) Imaging Data Extremity x-ray #1: Radiologist's Impression: Impression: Possible fracture of the base of the 1st metacarpal, seen only in one view, correlate with point tenderness MDM Narrative Medical decision making narrative: 49-year-old female no significant past medical history presenting for left hand pain, states it has happened after she dropped a large clamp on her hand proximally 2 days ago, has had persistent swelling pain but on exam neurovascularly intact, she has mild decreased active passive range of motion of fingers secondary to pain x-ray showing possible fracture of the base of the 1st metacarpal, patient does have tenderness to palpation of the a posterior aspect of the left hand therefore will place patient in thumb spica splint and informed to follow up with Orthopedic surgery in outpatient setting, verbalized understanding of this and agrees to being discharged home with outpatient follow up Discharge Plan Departure Patient Disposition: Home Clinical Impression: First metacarpal bone fracture, Contusion of hand Instructions: How to Take Care of Your Splint Activity Restrictions/Additional Instructions: Please follow up with Orthopedic surgery and your primary care doctor Please read the discharge instructions sheet carefully and bring all papers to all doctor follow-up visits, as it may contain information that your doctor may want to see. Disease processes change and evolve, if your symptoms worsen or if you develop any new symptoms that are concerning to you please return for evaluation. Your evaluation today does not show any evidence of any life-threatening/serious illnesses requiring admission to the hospital or surgery. Please follow-up with your doctor for re-evaluation in approximately 1 day. Seek immediate medical attention for any worrisome symptoms. *If you do not have a primary care provider please contact the [facility] Resource line at [phone]. They will ask some questions about your medical history and help get you set up with a doctor in the community. Prescriptions: New naproxen [Naprosyn] 500 mg tablet 500 mg PO BID PRN (Reason: pain) 7 Days Qty: 14 0RF No Action prednisone 10 mg tablet See Rx Instructions .ROUTE .COMPLEX Qty: 30 0RF Rx Instructions: Day 1,2,3: 40mg PO Daily Day 4,5,6: 30mg PO Daily Day 7,8,9: 20mg PO Daily Day 10,11,12: 10mg PO Daily #30 amoxicillin-pot clavulanate [Augmentin] 875-125 mg tablet 1 tab PO BID Qty: 20 0RF methocarbamol 500 mg tablet 500 mg PO TID Qty: 30 0RF methylprednisolone [Medrol (Yang)] 4 mg tablets,dose pack See Rx Instructions .ROUTE .COMPLEX Qty: 21 0RF Rx Instructions: for 6 days hydrocodone-acetaminophen 5-325 mg tablet 1 tab PO BID PRN (Reason: pain) Qty: 12 0RF Referrals: Damien Martinez MD [Physician] - Stand Alone Forms: Patient Portal/API/Survey
[2025-02-06] MEDS: OXYCODONE/ACETAMINOPHEN 5/325 TABLET 1 TAB PO (21:46)
[2025-02-06 21:58] VITALS: BP 140/91; PULSE 67; RESP 16; O2SAT 98
== END 2025-02-06 22:04 | disposition home or self-care (01) ==
PROVIDERS: Emergency Provider Student in an Organized Health Care Education/Training Program
DX: S62.232A Other displaced fracture of base of first metacarpal bone, left hand, initial encounter for closed fracture (principal); W18.39XA Other fall on same level, initial encounter
CPT/HCPCS: 29125; 73130; 99283

== ENCOUNTER → 2025-06-13 16:00 | Outpatient (CLI) | payer MEDICARE, MEDICAID, SELFPAY ==
--- NOTE | 2025-06-13 16:00 | DI.MRI.S_ITS ---
PROCEDURE: MR KNEE RT WO CON INDICATIONS: right knee pain TECHNIQUE: Noncontrast sagittal PD fast spin echo and T2 fast spin echo with fat saturation, sagittal 3-D FLASH with fat saturation; coronal T1 spin echo and PD fast spin echo with fat saturation, and axial PD fast spin echo with fat saturation through the knee. COMPARISON: Located Within [facility], CR, XR KNEE RT 3V, 05/15/2025, 12:12. FINDINGS: Image quality: Excellent. Menisci: Medial meniscus is intact. Partial detachment of the lateral meniscus. Linear horizontal high T2 signal intensity traverses the inner, middle, and peripheral thirds of the lateral meniscal body and anterior horn, demonstrating superior articular surface extension, indicating horizontal tearing. Cruciate ligaments: The anterior and posterior cruciate ligaments appear intact. Mild T2 signal elevation along the course of the anterior cruciate ligament, in a pattern suggestive of myxoid degeneration. Medial structures: The medial collateral ligament appears intact. Visualized portions of the pes anserinus tendons appear normal. No abnormal bursal fluid. Lateral structures: The lateral collateral ligament, long and short heads of the biceps femoris tendon appear intact. The popliteus tendon appears normal. Iliotibial band appears normal. Anterior structures: The quadriceps and patellar tendons appear intact. Lateral patellar subluxation. Lateral ventral trochlear prominence. Moderate edema in the superolateral aspect of the infrapatellar fat pad. Bones and cartilage: Diffuse low proton density signal within the distal femur and proximal tibia, suggestive of red marrow reconversion. No bone marrow contusions or fractures. Moderate ill-defined STIR signal elevation within the central and lateral tibial plateau, as well as the mid and posterior weight-bearing aspect of the lateral femoral condyle. Mild articular cartilage loss diffusely overlies the weight- bearing aspects of the medial femoral condyle and medial tibial plateau. Mild articular cartilage loss overlies the weight-bearing aspects of the lateral femoral condyle and lateral tibial plateau. Moderate articular cartilage loss overlies the lateral patellar facet. Joint space: There is a moderate knee joint effusion and a moderate Pelayo's cyst. Large amount of debris within the joint space. Normal appearing synovial plicae are incidentally noted. IMPRESSION: 1. Tricompartmental osteoarthritis with associated articular cartilage loss. 2. Lateral meniscal tearing. 3. Knee joint effusion, Pelayo's cyst, and large amount of debris within the joint space. 4. Myxoid degeneration of the anterior cruciate ligament. 5. Red marrow reconversion. 6. Findings consistent with lateral patellofemoral friction syndrome. Dictated by: Andi Starr M.D. on 06/14/2025 at 11:45 Approved by: Andi Starr M.D. on 06/14/2025 at 11:51
== END ==
PROVIDERS: Referring Provider Physician Assistant Surgical; Visit Provider Physician Assistant Surgical
DX: S83.281A Other tear of lateral meniscus, current injury, right knee, initial encounter (principal); M17.11 Unilateral primary osteoarthritis, right knee; M71.21 Synovial cyst of popliteal space [Baker], right knee; M25.461 Effusion, right knee; M25.561 Pain in right knee
CPT/HCPCS: 73721